=== PATIENT | female | born 1985 | race Caucasian/White ===

== ENCOUNTER 2017-05-27 19:40 | Emergency (ER) | payer MEDICAID, OTHER ==
[~2017-05-27] VITALS: Ht 165.1 cm; Wt 65.6 kg
[2017-05-27 19:42] VITALS: BP 116/75
[2017-05-27] MEDS ORDERED: DEXAMETHASONE 4 MG TABLET PO ONE (20:00)
[2017-05-27] MEDS ORDERED: HYDROcodone/APAP 5/325 TABLET ONE (20:10)
[2017-05-27] MEDS ORDERED: DEXAMETHASONE 4 MG TABLET ONE (20:10)
[2017-05-27] MEDS ORDERED: HYDROcodone/APAP 5/325 TABLET PO ONE (20:30)
== END 2017-05-27 20:25 | disposition home or self-care (01) ==
LOC: ED 20:19
DX: J02.0 Streptococcal pharyngitis (principal)
CPT/HCPCS: 99283

== ENCOUNTER 2017-05-31 18:19 | Emergency (ER) | payer OTHER ==
[~2017-05-31] VITALS: Ht 152.4 cm; Wt 64.4 kg
[2017-05-31] MEDS ORDERED: IBUP-1223 PO (18:53)
[2017-05-31] MEDS ORDERED: AMOX-291 PO (18:53)
[2017-05-31] MEDS ORDERED: DEXAMETHASONE 4 MG/ML, 1ML IV ONE (19:30)
[2017-05-31] MEDS ORDERED: AMOXICILLIN/CLAV 875-125MG TABLET PO ONE (19:30)
[2017-05-31] MEDS ORDERED: HYDROcodone/APAP 5/325 TABLET PO ONE (19:30)
[2017-05-31] MEDS ORDERED: SODIUM CHLORIDE 0.9% 1,000ML IVBOLUS ONE (19:30)
[2017-05-31 19:36] LABS: BASOPHILS # (AUTO) 0.03 x10^3/uL (0-0.1); BASOPHILS % (AUTO) 0 % (0-1); EOSINOPHILS # (AUTO) 0.05 x10^3/uL (0-0.4); EOSINOPHILS % (AUTO) 1 % (1-7); LYMPHOCYTES # (AUTO) 1.61 x10^3/uL (1-3.4); LYMPHOCYTES % (AUTO) 14 % (22-44); MD NO; MEAN CORPUSCULAR HEMOGLOBIN 29.4 pg (27.0-34.8); MEAN CORPUSCULAR HGB CONC 33.7 g/dL (32.4-35.8); MEAN CORPUSCULAR VOLUME 87.4 fL (80-100); MEAN PLATELET VOLUME 8.4 fL (7.4-10.4); MONOCYTES # (AUTO) 0.81 x10^3/uL (0.2-0.8); MONOCYTES % (AUTO) 7 % (2-9); NEUTROPHILS # (AUTO) 8.71 x10^3/uL (1.8-6.8); NEUTROPHILS % (AUTO) 78 % (42-75); PLATELET COUNT 258 x10^3/uL (130-400); RED BLOOD COUNT 4.62 x10^6/uL (3.82-5.3); RED CELL DISTRIBUTION WIDTH 12.8 % (9.6-15.2)
[2017-05-31] MEDS ORDERED: AMOXICILLIN/CLAV 875-125MG TABLET ONE (19:37)
[2017-05-31] MEDS ORDERED: DEXAMETHASONE 4 MG/ML, 1ML ONE (19:37)
[2017-05-31] MEDS ORDERED: HYDROcodone/APAP 5/325 TABLET ONE (19:38)
[2017-05-31 19:44] LABS: ALBUMIN 3.2 g/dL (3.4-5.0); ANION GAP 8 mmol/L (5-15); CALCIUM 8.3 mg/dL (8.5-10.1); CHLORIDE 106 mmol/L (98-107); CREATININE 0.67 mg/dL (0.55-1.02)
[2017-05-31 20:28] VITALS: BP 124/85
== END 2017-05-31 20:44 | disposition home or self-care (01) ==
LOC: ED 20:39
DX: J03.00 Acute streptococcal tonsillitis, unspecified (principal); E86.0 Dehydration
CPT/HCPCS: 36415; 80048; 82040; 85025; 87081; 87880; 96361; 96374; 99284; J1100; J7030

== ENCOUNTER 2018-02-08 10:30 | Emergency (ER) | payer SELFPAY ==
[~2018-02-08] VITALS: Ht 165.1 cm; Wt 68.3 kg
[~2018-02-08 10:30] MED LIST: AMOX-291 PO; IBUP-1223 PO
[2018-02-08 11:58] LABS: RAPID INFLUENZA A Negative (Negative); RAPID INFLUENZA B Negative (Negative)
[2018-02-08] MEDS ORDERED: ONDANSETRON ODT 4 MG ONE (12:00)
[2018-02-08] MEDS ORDERED: IBUPROFEN 200 MG TABLET PO ONE (12:00)
[2018-02-08] MEDS ORDERED: ONDANSETRON ODT 4 MG PO ONE (12:00)
[2018-02-08] MEDS ORDERED: IBUPROFEN 600 MG TABLET ONE (12:14)
[2018-02-08 12:33] LABS: BASOPHILS # (AUTO) 0.03 x10^3/uL (0-0.1); BASOPHILS % (AUTO) 0 % (0-1); EOSINOPHILS % (AUTO) 0 % (1-7); LYMPHOCYTES # (AUTO) 0.77 x10^3/uL (1-3.4); LYMPHOCYTES % (AUTO) 6 % (22-44); MD NO; MEAN CORPUSCULAR HGB CONC 33.2 g/dL (32.4-35.8); MEAN CORPUSCULAR VOLUME 87.5 fL (80-100); MEAN PLATELET VOLUME 8.4 fL (7.4-10.4); MONOCYTES # (AUTO) 0.85 x10^3/uL (0.2-0.8); MONOCYTES % (AUTO) 6 % (2-9); NEUTROPHILS # (AUTO) 12.39 x10^3/uL (1.8-6.8); NEUTROPHILS % (AUTO) 88 % (42-75); PLATELET COUNT 288 x10^3/uL (130-400); RED BLOOD COUNT 4.85 x10^6/uL (3.82-5.3); RED CELL DISTRIBUTION WIDTH 13.4 % (9.6-15.2)
[2018-02-08 12:43] LABS: ALBUMIN 4.2 g/dL (3.4-5.0); ANION GAP 12 mmol/L (5-15); CALCIUM 8.9 mg/dL (8.5-10.1); CHLORIDE 108 mmol/L (98-107); CREATININE 0.75 mg/dL (0.55-1.02)
[2018-02-08 13:59] VITALS: BP 111/65
== END 2018-02-08 14:28 | disposition home or self-care (01) ==
LOC: ED 13:52
DX: R50.9 Fever, unspecified (principal); J02.9 Acute pharyngitis, unspecified; R05 Cough
CPT/HCPCS: 36415; 71045; 80048; 82040; 85025; 87400; 93005; 99284; Q0162

== ENCOUNTER 2020-04-02 16:02 | Emergency (ER) | payer OTHER ==
[~2020-04-02] VITALS: Ht 167.6 cm; Wt 78.5 kg
[2020-04-02 16:04] VITALS: BP 135/82
== END 2020-04-02 16:28 ==
LOC: ED 16:20
DX: R42 Dizziness and giddiness (principal); R51.9 Headache, unspecified; Z53.21 Procedure and treatment not carried out due to patient leaving prior to being seen by health care provider

== ENCOUNTER → 2020-04-02 | Outpatient (CLI) | payer OTHER | END | disposition home or self-care (01) | LOC: RAD 16:36 | PROVIDERS: ATTEND Family Medicine | DX: S06.0X0A Concussion without loss of consciousness, initial encounter (principal); M51.34 Other intervertebral disc degeneration, thoracic region; M41.82 Other forms of scoliosis, cervical region; R51.9 Headache, unspecified; X58.XXXA Exposure to other specified factors, initial encounter; Y93.89 Activity, other specified; Y92.89 Other specified places as the place of occurrence of the external cause; Y99.8 Other external cause status | CPT/HCPCS: 70450; 72050; 72072 ==